=== PATIENT | female | born 1940 | race Caucasian/White ===

== ENCOUNTER 2021-04-10 14:58 | Outpatient (CLI) | payer MEDICARE, SELFPAY ==
--- NOTE | 2021-04-10 | XRR_ITS ---
[facility] Final Radiology Report Call: [phone] assistance Online chat: [email or web address] Name: KAREN ROUSE Age: 81Years F Date: 04/10/2021 SSN: [id number] : 1940 Study: XR CHEST 2 VIEWS Requesting Physician: YASMANI PALACIOS Images: 2 Add?l Studies: Provided Clinical History: DYSPHONIA PROCEDURE INFORMATION: Exam: XR Chest Exam date and time: 04/10/2021 3:11 PM Age: 81 years old Clinical indication: Other: Dysphonia TECHNIQUE: Imaging protocol: XR of the chest. Views: 2 views. COMPARISON: CR Chest 2 views* [id number] 02/06/2017 9:17 AM FINDINGS: Lungs: Linear atelectasis or scarring in the left base. The right lung is clear. Hyperexpanded lungs could indicate COPD. Pleural spaces: Unremarkable. No pleural effusion. No pneumothorax. Heart/Mediastinum: Unremarkable. No cardiomegaly. Bones/joints: C-spine hardware. Bilateral rotator cuff arthropathy. Scoliosis. No compression fracture visualized. Soft tissues: Right breast implant with capsular calcifications. IMPRESSION: No acute findings. Thank you for allowing us to participate in the care of your patient. Dictated and Authenticated by: Brendan Hernández MD 04/10/2021 9:01 PM Central Time ([place] & [place]) BONI
== END 2021-04-10 14:59 | disposition home or self-care (01) ==
PROVIDERS: PCP Family Medicine; Visit Provider Specialist
DX: J37.0 Chronic laryngitis (principal); K21.9 Gastro-esophageal reflux disease without esophagitis; R05 Cough; R49.0 Dysphonia
CPT/HCPCS: 71046

== ENCOUNTER 2022-01-26 11:07 | Outpatient (CLI) | payer MEDICARE, SELFPAY ==
[2022-01-26 13:19] LABS: 25 Hydroxy Vitamin D 65 ng/mL (30-100); Anion Gap 17.7 (5-19); Blood Urea Nitrogen 43 mg/dL (8-23); Calcium 9.5 mg/dL (8.5-10.5); Carbon Dioxide 24 mmol/L (22-29); Chloride 88 mmol/L (98-107); Glucose 94 mg/dL (65-115); Phosphorus 3.8 mg/dL (2.5-4.5); Potassium 4.7 mmol/L (3.5-5.1); Sodium 125 mmol/L (136-145)
[2022-01-26 13:20] LABS: Creatinine Urine, Random 51 mg/dL (28-217); Microalbum Creatinine Ratio Ur 20 mg/dL (0-20); Microalbumin Random Urine 1 ug/dL (0-20)
[2022-01-26 13:26] LABS: Calcium 9.6 mg/dL (8.5-10.5); Parathyroid Hormone 101.1 pg/mL (15-65)
== END 2022-01-26 11:08 | disposition home or self-care (01) ==
PROVIDERS: PCP Family Medicine; Visit Provider Internal Medicine Nephrology
DX: N18.4 Chronic kidney disease, stage 4 (severe) (principal)
CPT/HCPCS: 36415; 80069; 82044; 82306; 82310; 83970

== ENCOUNTER 2022-01-26 21:18 | Inpatient (IN) | payer MEDICARE, SELFPAY ==
[2022-01-26 21:33] VITALS: BP 157/77; PULSE 97; RESP 18; TEMP 36.2; O2SAT 95; BMI 29.2
--- NOTE | 2022-01-26 22:05 | XRR_ITS ---
PROCEDURE INFORMATION: Exam: XR Chest Exam date and time: 01/26/2022 10:19 PM Age: 82 years old Clinical indication: Other: Genral weakness; Prior surgery; Surgery type: Breast augmentation; Patient HX: Generalized weakness. TECHNIQUE: Imaging protocol: XR of the chest. Views: 1 view. COMPARISON: CR XR chest 2V* [id number] 04/10/2021 3:35 PM FINDINGS: Lungs: Unremarkable. No consolidation. Pleural spaces: Unremarkable. No pleural effusion. No pneumothorax. Heart/Mediastinum: Unremarkable. No cardiomegaly. Bones/joints: Unremarkable. XR/XR chest 1V portable [id number] IMPRESSION: No acute findings.
--- NOTE | 2022-01-26 22:06 | ECG_ITS ---
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 Measurements Intervals [place] Rate: 83 P: 50 TX: 180 QRS: 60 QRSD: 85 T: 29 QT: 345 QTc: 407 Interpretive Statements SINUS RHYTHM No previous ECG available for comparison Electronically Signed On 01-27-2022 8:15:18 CDT by Maximilian Williamson M.D. [id number]
[2022-01-26 22:53] LABS: Basophils % 0.3 %; Eosinophils # 0.5 10^3/uL (0.0-0.8); Eosinophils % 4.1 %; Hematocrit 32.4 % (37.0-47.0); Hemoglobin 10.9 g/dL (11.5-15.3); Lymphocytes # 3.6 10^3/uL (0.8-4.8); Mean Corpuscular HGB Conc 33.6 g/dL (30.0-36.0); Mean Corpuscular Hemoglobin 30.4 pg (28.0-34.0); Mean Corpuscular Volume 90.5 fl (81-99); Mean Platelet Volume 9.3 fL (7.4-10.4); Monocytes # 0.7 10^3/uL (0.2-0.9); Monocytes % 6.3 %; Neutrophils # 6.64 10^3/uL (1.8-7.7); Nucleated Red Blood Cells % 0 %; Platelet Count 383 10^3/cmm (130-400); Red Blood Count 3.58 10^6/uL (4.1-5.3); Red Cell Distribution Width 11.9 % (12.1-15.1); White Blood Count 11.5 10^3/uL (4.0-10.0)
[2022-01-26 23:22] LABS: Alanine Aminotransferase 9 U/L (0-33); Albumin Level 4.3 g/dL (3.5-5.2); Alkaline Phosphatase 97 IU/L (35-105); Anion Gap 16.7 (5-19); Aspartate Amino Transferase 12 U/L (0-32); Blood Urea Nitrogen 40 mg/dL (8-23); Calcium 8.8 mg/dL (8.5-10.5); Carbon Dioxide 24 mmol/L (22-29); Chloride 90 mmol/L (98-107); Globulin 3.1 g/dL (1.3-4.6); Glucose 119 mg/dL (65-115); Magnesium 1.8 mg/dL (1.7-2.3); NT Pro B Type Natriuretic Pept 418 pg/mL (0-450); Osmolality Calculated 273 mOsm/kg (285-295); Phosphorus 3.7 mg/dL (2.5-4.5); Potassium 4.7 mmol/L (3.5-5.1); Sodium 126 mmol/L (136-145); Total Bilirubin 0.2 mg/dL (0.15-1.2); Total Protein 7.4 g/dL (6.6-8.7)
[2022-01-26 23:30] VITALS: BP 166/77; PULSE 81; RESP 18; O2SAT 97
--- NOTE | 2022-01-26 23:55 | PC.NURSE ---
2330 pt to bathroom via wheelchair unsteady gait, pt reports she has been weak for a couple of months
[2022-01-27] VITALS (14 sets, daily range): BP systolic 121–169; BP diastolic 66–100; PULSE 79–96; RESP 14–20; TEMP 36.7–37.1; O2SAT 93–97; BMI 29.5
[2022-01-27 00:18] LABS: Add Urine Microscopic? YES; Bilirubin Urine Neg (Negative); Blood Urine Neg (Negative); Glucose Urine UA Norm (Normal); Ketones Urine Negative (Negative); Leukocyte Esterase Urine Trace (Negative); Nitrate Urine Negative (Negative); Protein Urine Neg (Negative); Specific Gravity, Urine 1.005 (1.005-1.030); Urine Appearance Clear (CLEAR); Urine Color Yellow (Yellow); Urobilinogen Urine Norm (Negative); pH Urine 7 (5-7)
[2022-01-27 00:19] LABS: Add Urine Culture? No; Bacteria Urine TRACE /hpf; RBC Urine 0-4 /hpf (0-2); Squamous Epithelial Cell Urine 0-4 /hpf (0-5); WBC Urine 0-4 /hpf (0-5)
--- NOTE | 2022-01-27 00:20 | W.ED.GENADLT ---
HPI - General Adult General: Chief complaint: General Medical Stated complaint: sent by PCP Time Seen by Provider: 01/26/22 21:36 History of Present Illness: 82-year-old lady with a history of hypertension, and evidently some kidney disease. She presents after having labs done around noon, and being called by a nephrology nurse practitioner urging her to go to the emergency room for a low sodium level. She notes that her sodium was 125 earlier today. She notes generalized weakness, and shakiness, that she usually does not have. Her mental status is at baseline according to her daughter. She has not had a fever, or significant cough, or any other concerning symptoms. Onset (ago): day(s) Radiation: non-radiation Quality: other Pain Consistency: other Relieving factors: other Associated symptoms: Reports nausea; Deny chest pain, confusion, fevers/chills, headache(s), seizures or vomiting Review of Systems Card: Denies: chest pain GI: Reports: nausea; Denies: vomiting Neuro: Denies: headache(s) or confusion PFS ED PFSH: Medical History Anxiety and depression Chronic kidney disease (CKD) stage G3a/A2, moderately decreased glomerular filtration rate (GFR) between 45-59 mL/min/1.73 square meter and albuminuria creatinine ratio between 30-299 mg/g History of peripheral neuropathy Hypertension Restless leg syndrome Surgical History (Updated 01/27/22 @ 00:26 by Cleve Upton MD) History of bilateral hip replacements Family History (Updated 01/27/22 @ 00:26 by Cleve Upton MD) Father CAD (coronary artery disease) Mother Stroke Social History Smoking and tobacco status: never smoked Alcohol intake: never Substance/Drug Use: never Physical Exam Const: COMMON NORMALS: alert GENERAL APPEARANCE: cooperative and frail appearing ORIENTATION/CONSCIOUSNESS: Yes oriented to person, Yes oriented to place and Yes oriented to time HENMT: COMMON NORMALS: normocephalic, atraumatic and Normal external nose present HEAD & SCALP: normocephalic and atraumatic FACE & SINUS: normal facial exam NOSE: Normal external nose present Eye: COMMON NORMALS: Equal, round and reactive pupils present and EOMs intact bilaterally PUPIL: Yes Equal, round and reactive pupils present Chest: COMMONS NORMALS: normal inspection of the chest Resp: COMMON NORMALS: normal respiratory effort, No use of accessory muscles and clear to auscultation bilaterally AUSCULTATION: clear to auscultation bilaterally Cardio: COMMON NORMALS: regular rate and regular rhythm RATE: regular rate RHYTHM: regular rhythm GI: COMMON NORMALS: Normal to inspection, nondistended, normoactive bowel sounds present, Soft to palpation and non-tender PALPATION: Yes Soft to palpation Extremity: GENERAL: Yes edema (1+) Neuro: SENSORIUM/ORIENTATION: Yes alert, Yes oriented to person, Yes oriented to place and Yes oriented to time CRANIAL NERVES: Yes CN normal except as noted SENSORY EXAM: Yes extremities MOTOR EXAM: Tremors during motor activity present (mild resting) Course Consultations: Consultation #1: eva Vital Signs: Vital signs: Vital Signs Temperature 97.2 F L 01/26/22 21:33 Pulse Rate 97 01/26/22 21:33 Respiratory Rate 18 01/26/22 21:33 Blood Pressure 157/77 01/26/22 21:33 Pulse Oximetry 95 01/26/22 21:33 [facility] - General Adult Medical Decision Making 82-year-old female with a sodium of 126. She is quite weak, and a bit tremulous. Creatinine is 1.7. Baseline is unknown. She will be admitted and treated for hyponatremia. Lab Data : 01/26/22 22:45 01/26/22 22:45 Radiology Impressions Chest X-Ray 01/26/22 22:05 IMPRESSION: No acute findings. Laboratory Results WBC 11.5 10^3/uL (4.0-10.0) H 01/26/22 22:45 RBC 3.58 10^6/uL (4.1-5.3) L 01/26/22 22:45 Hgb 10.9 g/dL (11.5-15.3) L 01/26/22 22:45 Hct 32.4 % (37.0-47.0) L 01/26/22 22:45 MCV 90.5 fl (81-99) 01/26/22 22:45 MCH 30.4 pg (28.0-34.0) 01/26/22 22:45 MCHC 33.6 g/dL (30.0-36.0) 01/26/22 22:45 RDW 11.9 % (12.1-15.1) L 01/26/22 22:45 Plt Count 383 10^3/cmm (130-400) 01/26/22 22:45 MPV 9.3 fL (7.4-10.4) 01/26/22 22:45 Neut % (Auto) 58.0 % 01/26/22 22:45 Lymph % (Auto) 31.0 % 01/26/22 22:45 [place] % (Auto) 6.3 % 01/26/22 22:45 Eos % (Auto) 4.1 % 01/26/22 22:45 Baso % (Auto) 0.3 % 01/26/22:45 Neut # (Auto) 6.64 10^3/uL (1.8-7.7) 01/26/22 22:45 Lymph # (Auto) 3.6 10^3/uL (0.8-4.8) 01/26/22 22:45 [place] # (Auto) 0.7 10^3/uL (0.2-0.9) 01/26/22 22:45 Eos # (Auto) 0.5 10^3/uL (0.0-0.8) 01/26/22:45 Baso # (Auto) 0.0 10^3/uL (0.0-0.1) 01/26/22 22:45 Nucleated RBC % (auto) 0 % 01/26/22:45 Nucleated RBCs # 0.0 /100WBC 01/26/22 22:45 Sodium 126 mmol/L (136-145) L 01/26/22 22:45 Potassium 4.7 mmol/L (3.5-5.1) 01/26/22 22:45 Chloride 90 mmol/L (98-107) L 01/26/22 22:45 Carbon Dioxide 24 mmol/L (22-29) 01/26/22 22:45 Anion Gap 16.7 (5-19) 01/26/22 22:45 BUN 40 mg/dL (8-23) H 01/26/22 22:45 Creatinine 1.7 mg/dL (0.5-0.9) H 01/26/22 22:45 GFR Calculation Not Reportable 01/26/22 22:45 Glucose 119 mg/dL (65-115) H 01/26/22 22:45 Calculated Osmolality 273 mOsm/kg (285-295) L 01/26/22 22:45 Calcium 8.8 mg/dL (8.5-10.5) 01/26/22 22:45 Phosphorus 3.7 mg/dL (2.5-4.5) 01/26/22 22:45 Magnesium 1.8 mg/dL (1.7-2.3) 01/26/22 22:45 Total Bilirubin 0.2 mg/dL (0.15-1.2) 01/26/22 22:45 AST 12 U/L (0-32) 01/26/22 22:45 ALT 9 U/L (0-33) 01/26/22 22:45 Alkaline Phosphatase 97 IU/L (35-105) 01/26/22 22:45 NT-Pro-B Natriuret Pep 418 pg/mL (0-450) 01/26/22 22:45 Total Protein 7.4 g/dL (6.6-8.7) 01/26/22 22:45 Albumin 4.3 g/dL (3.5-5.2) 01/26/22 22:45 Globulin 3.1 g/dL (1.3-4.6) 01/26/22 22:45 Urine Color Yellow (Yellow) 01/26/22 23:30 Urine Appearance Clear (CLEAR) 01/26/22 23:30 Urine pH 7 (5-7) 01/26/22 23:30 Ur Specific [place] 1.005 (1.005-1.030) 01/26/22 23:30 Urine Protein Neg (Negative) 01/26/22 23:30 Urine Glucose (UA) Norm (Normal) 01/26/22 23:30 Urine Ketones Negative (Negative) 01/26/22 23: Urine Blood Neg (Negative) 01/26/22 23: Urine Nitrate Negative (Negative) 01/26/22 23:30 Urine Bilirubin Neg (Negative) 01/26/22 23: Urine Urobilinogen Norm mg/dL (Negative) 01/26/22 23:30 Ur Leukocyte Esterase Trace (Negative) H 01/26/22 23:30 Urine RBC 0-4 /hpf (0-2) H 01/26/22 23:30 Urine WBC 0-4 /hpf (0-5) H 01/26/22 23:30 Ur Squamous Epith Cells 0-4 /hpf (0-5) H 01/26/22 23:30 Amorphous Sediment Not Reportable 01/26/22 23:30 Urine Bacteria Trace /hpf (NONE) 01/26/22 23:30 Discharge Plan Discharge Patient Disposition: Admitted As Inpatient Admit Provider: Cleve Upton Clinical Impression: Acute hyponatremia, Weakness Condition: Stable Coding Level of Care Code ED Manager Management for Chg Fwd Exam Comprehensive
--- NOTE | 2022-01-27 00:23 | P.HP_ITS ---
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 Patient tells her that recently she has been feeling more weak, unsteady, jitt maxwell. She normally ambulates with a walker, has been feeling more weak, unsteady, no falls or injuries. No headache, no blurry vision. No seizures. But recently she has been feeling more jittery, she saw Dr. Lyons who thought that she might have had restless leg and her gabapentin dose was go to be increased. 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 No dysuria. No increased urination. No dehydration. No diarrhea. She is on chlorthalidone. No recent blood pressure medication changes Review of Systems Const: Denies: fever(s) or chills Eyes: Denies: change in vision or blurry vision Card: Denies: chest pain, palpitations, swelling of feet/ankles or dyspnea on exertion Resp: Denies: dyspnea, productive cough, non-productive cough or wheezing GI: Denies: abdominal pain, nausea or vomiting : Denies: dysuria or urinary frequency Skin/Breast: Denies: rash Neuro: Denies: headache(s) or dizziness Endo: Denies: polyuria or polydipsia PFSH Acute PFSH: Medical History (Updated 01/27/22 @ 00:27 by Cleve Upton MD) Anxiety and depression Chronic kidney disease (CKD) stage G3a/A2, moderately decreased glomerular filtration rate (GFR) between 45-59 mL/min/1.73 square meter and albuminuria creatinine ratio between 30-299 mg/g History of peripheral neuropathy Hypertension Restless leg syndrome Surgical History (Updated 01/27/22 @ 00:26 by Cleve Upton MD) History of bilateral hip replacements Family History (Updated 01/27/22 @ 00:26 by Cleve Upton MD) Father CAD (coronary artery disease) Mother Stroke Social History (Updated 01/27/22 @ 00:27 by Cleve Upton MD) Smoking and tobacco status: never smoked Alcohol intake: never Substance/Drug Use: never Vitals/I&O/Wt Last Vital Signs Temp 97.2 F L 01/26/22 21:33 Pulse 97 01/26/22 21:33 Resp 18 01/26/22 21:33 BP 157/77 01/26/22 21:33 Pulse Ox 95 01/26/22 21:33 Weight last 48 hrs Weight 70.307 kg Physical Exam Const: COMMON NORMALS: no acute distress and patient oriented x3 HENMT: COMMON NORMALS: normocephalic HEAD & SCALP: normocephalic Eye: COMMON NORMALS: Equal, round and reactive pupils present and EOMs intact bilaterally Resp: COMMON NORMALS: normal respiratory effort, No retractions, No use of accessory muscles and clear to auscultation bilaterally AUSCULTATION: clear to auscultation bilaterally Cardio: COMMON NORMALS: no JVD, regular rate, regular rhythm, S1 normal heart sound present and S2 normal heart sound present RATE: regular rate RHYTHM: regular rhythm HEART SOUNDS: S1 normal heart sound present and S2 normal heart sound present GI: COMMON NORMALS: Normal to inspection, nondistended, normoactive bowel sounds present, Soft to palpation, non-tender, No hepatosplenomegaly present, no masses and no bruits PALPATION: Yes Soft to palpation and Yes No hepatosplenomegaly present Extremity: COMMON NORMALS: capillary refill normal, no clubbing, cyanosis or edema, no calf tenderness and no pedal edema Neuro: COMMON NORMALS: patient oriented x3, CN's II-XII intact bilaterally, moves all extremities and no focal motor deficits Psych: COMMON NORMALS: mental status grossly normal Data : 01/26/22 22:45 01/26/22 22:45 A&P Assessment and plan (1) Hyponatremia: Status: Acute (2) Chronic kidney disease (CKD) stage G3a/A2, moderately decreased glomerular filtration rate (GFR) between 45-59 mL/min/1.73 square meter and albuminuria creatinine ratio between 30-299 mg/g: Status: Acute Plan Acute hyponatremia -Likely secondary dehydration -BUN is elevated at 40 -Start IV hydration -Monitor serum sodiums -Neurochecks -DNR/DNI -Lovenox for DVT prophylaxis Chronic kidney disease, her last creatinine drawn in June shows that her creatinine was 1.9 History of peripheral neuropathy Hypertension, stop chlorthalidone Attestations Medical Necessity Statement*: Patient requires hospitalization for hyponatremia, inpatient, greater than 2 midnights Coding Level of Care Code Acute Radio Time Sales Supervisor for Chg Fwd Diagnoses Hyponatremia E87.1 Chronic kidney disease (CKD) stage G3a/A2, moderately decreased glomerular filtration rate (GFR) between 45-59 mL/min/1.73 square meter and albuminuria creatinine ratio between 30-299 mg/g N18.31
[2022-01-27] MEDS: ALPRAZolam 0.5 mg Tablet PO ×3 (02:14→23:00)
[2022-01-27] MEDS: enoxaparin 40 mg/0.4 mL Syringe SUBCUT (02:14)
[2022-01-27] MEDS: sodium chloride 0.9% 1,000 ML 100 ML IV ×3 (02:18→21:50)
--- NOTE | 2022-01-27 05:09 | NUR.SHIFT ---
Oriented when awake since admission. No complaints of pain made but did have report of anxiety so PRN medication given and effective for patient. Resting in bed now. 20 g IV in left antecubital infusing NS at 100ml/hr per order. Telemetry sinus rhythm with PVC's. Was able to stand and pivot with minimal assistance, weakness noted.
[2022-01-27] MEDS: levothyroxine 150 mcg Tablet 75 MCG PO (05:31)
[2022-01-27] MEDS: gabapentin 300 mg Capsule 900 MG PO ×2 (08:11→13:19)
[2022-01-27] MEDS: pantoprazole DR 40 mg Tablet PO (08:11)
[2022-01-27] MEDS: sennosides-docusate Tablet 1 TAB PO (08:11)
[2022-01-27] MEDS: duloxetine 60 mg Capsule PO (08:11)
[2022-01-27] MEDS: gabapentin 300 mg Capsule 600 MG PO (08:11)
[2022-01-27] MEDS: oxybutynin chloride XL 5 MG TABLET PO (08:11)
[2022-01-27] MEDS: sodium bicarbonate 650 mg Tablet PO (08:11)
[2022-01-27] MEDS: polyethylene glycol 3350 Pkt 17 gm PO (08:12)
[2022-01-27] MEDS: risperiDONE 1 mg Tablet PO (08:12)
[2022-01-27 08:27] LABS: Sodium 127 mmol/L (136-145)
[2022-01-27 12:35] LABS: Sodium 127 mmol/L (136-145)
[2022-01-27] MEDS: sodium chloride 1 gm Tablet 2 GM PO ×2 (14:39→17:20)
[2022-01-27] MEDS: HYDROcodone-acetaminophen 10-325 mg Tablet 1 TAB PO (14:40)
[2022-01-27 15:54] LABS: Urine Random Sodium 72 mmol/L
[2022-01-27 16:14] LABS: Sodium 128 mmol/L (136-145)
[2022-01-27 19:56] LABS: Sodium 131 mmol/L (136-145)
[2022-01-27] MEDS: duloxetine 30 mg Capsule PO (21:38)
[2022-01-28] VITALS: BP 145/74; PULSE 86; RESP 18; TEMP 36.4; O2SAT 94
[2022-01-28] MEDS: enoxaparin 40 mg/0.4 mL Syringe SUBCUT (01:02)
--- NOTE | 2022-01-28 02:49 | PC.NURSE ---
While up to bedside commode patient accidentally pulled IV out of left wrist. New IV intiated in left forearm by Mary Lauren RN.
[2022-01-28 04:00] VITALS: BP 144/68; PULSE 93; RESP 17; TEMP 36.7; O2SAT 95
[2022-01-28 05:09] LABS: Basophils % 0.4 %; Eosinophils # 0.3 10^3/uL (0.0-0.8); Eosinophils % 3.3 %; Hematocrit 28.2 % (37.0-47.0); Hemoglobin 9.3 g/dL (11.5-15.3); Lymphocytes # 3.3 10^3/uL (0.8-4.8); Lymphocytes % 34.7 %; Mean Corpuscular Hemoglobin 30.1 pg (28.0-34.0); Mean Corpuscular Volume 91.3 fl (81-99); Neutrophils # 4.71 10^3/uL (1.8-7.7); Nucleated Red Blood Cells % 0 %; Platelet Count 349 10^3/cmm (130-400); Red Blood Count 3.09 10^6/uL (4.1-5.3); Red Cell Distribution Width 12.2 % (12.1-15.1); White Blood Count 9.4 10^3/uL (4.0-10.0)
[2022-01-28] MEDS: gabapentin 300 mg Capsule 900 MG PO (05:11)
[2022-01-28] MEDS: levothyroxine 150 mcg Tablet 75 MCG PO (05:11)
[2022-01-28 05:32] LABS: Alanine Aminotransferase 7 U/L (0-33); Albumin Level 3.6 g/dL (3.5-5.2); Alkaline Phosphatase 74 IU/L (35-105); Aspartate Amino Transferase 12 U/L (0-32); Blood Urea Nitrogen 28 mg/dL (8-23); Calcium 8.2 mg/dL (8.5-10.5); Carbon Dioxide 20 mmol/L (22-29); Chloride 102 mmol/L (98-107); Globulin 2.3 g/dL (1.3-4.6); Glucose 104 mg/dL (65-115); Magnesium 1.5 mg/dL (1.7-2.3); Osmolality Calculated 284 mOsm/kg (285-295); Sodium 134 mmol/L (136-145); Thyroid Stimulating Hormone 2.28 uIU/mL (0.27-4.20); Total Bilirubin 0.2 mg/dL (0.15-1.2); Total Protein 5.9 g/dL (6.6-8.7)
[2022-01-28 05:33] LABS: Anion Gap 16.5 (5-19); Potassium 4.5 mmol/L (3.5-5.1)
[2022-01-28 05:48] VITALS: PULSE 89
[2022-01-28 07:38] VITALS: BP 145/76; PULSE 94; RESP 18; TEMP 36.7; O2SAT 93
[2022-01-28] MEDS: sodium chloride 0.9% 1,000 ML 100 ML IV (08:05)
[2022-01-28] MEDS: duloxetine 60 mg Capsule PO (08:06)
[2022-01-28] MEDS: sodium chloride 1 gm Tablet 2 GM PO (08:06)
[2022-01-28] MEDS: pantoprazole DR 40 mg Tablet PO (08:06)
[2022-01-28] MEDS: sodium bicarbonate 650 mg Tablet PO (08:07)
[2022-01-28] MEDS: risperiDONE 1 mg Tablet PO (08:10)
[2022-01-28] MEDS: oxybutynin chloride XL 5 MG TABLET PO (08:10)
[2022-01-28] MEDS: lanolin oint 7 gm 1 APPLIC TOPICAL (09:53)
[2022-01-28] MEDS: sodium chloride 0.9% 1,000 ML 50 ML IV (09:55)
--- NOTE | 2022-01-28 10:20 | PM.DCS ---
Discharge Providers Date of Admission: 01/27/22 00:08 Date of Discharge: January 28, 2022 Attending Provider at Admission: Cleve Upton MD Attending Provider at Discharge: Timothy Aiken MD Primary Care Provider: Wayne Echeverria MD Diagnoses at Discharge Discharge Diagnosis (1) Hyponatremia: (2) Chronic kidney disease (CKD) stage G3a/A2, moderately decreased glomerular filtration rate (GFR) between 45-59 mL/min/1.73 square meter and albuminuria creatinine ratio between 30-299 mg/g: Reason for Visit Reason for Visit: sent by PCP Hospital Course Hospital Course HPI : Shayla Trujillo is a 82 year old female with a past medical history of peripheral neuropathy, CKD stage III, hypertension, who presents to [facility] 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 Patient tells her that recently she has been feeling more weak, unsteady, jittery.? She normally ambulates with a walker, has been feeling more weak, unsteady, no falls or injuries.? No headache, no blurry vision.? No seizures.? But recently she has been feeling more jittery, she saw Dr. Lyons who thought that she might have had restless leg and her gabapentin dose was go to be increased.? When she was doing routine labs for loaders today and she was found to have a serum sodium of 126 so she was advised to come to the emergency room.? No dysuria.? No increased urination.? No dehydration.? No diarrhea.? She is on chlorthalidone.? No recent blood pressure medication changes. Hospital Course : She was admitted for the management for Ac Hypovolemic Hyponatremia,possible contribution from chlorthalidone, she was kept on I.V Hydration with normal saline, salt tablets were used,she was requested to eat and hydrate herself well,serum sodium was monitored q4hs,chlortahlidone was held during hospital stay,ans well as on discharge,serum sodium responded well to above conservative medical management, at the time of discharge she was not complaining of nausea,vomiting,dizziness,muscle pain, headache,confusion.Routine hyponatremia work up was done,her JULISA ON CKD Likely 2/2 to dehydration was also improving,scr on admission was 1.7 and on discharge was 1.2.She responded well to above medical mangement and she will follow up with her PCP as outpatient in 1 week with repeat BMP. Physical Exam Const: COMMON NORMALS: patient oriented x3 HENMT: COMMON NORMALS: normocephalic, atraumatic, hearing grossly normal bilaterally and external ears normal HEAD & SCALP: normocephalic and atraumatic EXTERNAL EAR: Yes external ears normal Eye: COMMON NORMALS: no scleral icterus GENERAL EYE: appearance normal, both eyes and all related structures Chest: COMMONS NORMALS: normal inspection of the chest and normal palpation of entire chest wall CHEST: Yes Symmetrical chest wall rise Resp: COMMON NORMALS: normal respiratory effort, No retractions, No use of accessory muscles and clear to auscultation bilaterally EFFORT & INSPECTION: Yes symmetric chest movement AUSCULTATION: clear to auscultation bilaterally Cardio: COMMON NORMALS: regular rate, regular rhythm, S1 normal heart sound present, S2 normal heart sound present, No gallops present (Cardio), No murmurs present (Cardio), No rub (Cardio) and Peripheral pulses 2+ throughout RATE: regular rate RHYTHM: regular rhythm HEART SOUNDS: S1 normal heart sound present and S2 normal heart sound present PERIPHERAL PULSES: Peripheral pulses 2+ throughout GI: COMMON NORMALS: Normal to inspection, nondistended, normoactive bowel sounds present, Soft to palpation, non-tender, No hepatosplenomegaly present and no masses AUSCULTATION: Yes normoactive bowel sounds PALPATION: Yes Soft to palpation and Yes No hepatosplenomegaly present RECTAL EXAM: deferred Extremity: COMMON NORMALS: no clubbing, cyanosis or edema and no pedal edema Neuro: COMMON NORMALS: patient oriented x3 Discharge Data Studies Completed and Pending Completed Studies During Hospitalization Category Date Time Status XR chest 1V portable [id number] Urgent Exams 01/26/22 22:05 Completed Pending at discharge Category Date Time Status BMP [Basic Metabolic Panel] AM LABS Lab 01/29/22 04:00 Ordered BMP [Basic Metabolic Panel] AM LABS Lab 01/30/22 04:00 Ordered Complete Blood Count w/Auto AM LABS Lab 01/29/22 04:00 Ordered Complete Blood Count w/Auto AM LABS Lab 01/30/22 04:00 Ordered Comprehensive Metabolic Panel AM LABS Lab 01/29/22 04:00 Ordered Comprehensive Metabolic Panel AM LABS Lab 01/30/22 04:00 Ordered Magnesium AM LABS Lab 01/29/22 04:00 Ordered Magnesium AM LABS Lab 01/30/22 04:00 Ordered Osmolality Serum Stat Lab 01/26/22 22:05 Received Osmolality Urine Stat Lab 01/26/22 23:30 Received Phosphorus AM LABS Lab 01/29/22 04:00 Ordered Phosphorus AM LABS Lab 01/30/22 04:00 Ordered Radiology Impressions Chest X-Ray 01/26/22 22:05 IMPRESSION: No acute findings. Laboratory Results WBC 9.4 10^3/uL (4.0-10.0) 01/28/22 04:25 RBC 3.09 10^6/uL (4.1-5.3) L 01/28/22 04:25 Hgb 9.3 g/dL (11.5-15.3) L 01/28/22 04:25 Hct 28.2 % (37.0-47.0) L 01/28/22 04:25 MCV 91.3 fl (81-99) 01/28/22 04:25 MCH 30.1 pg (28.0-34.0) 01/28/22 04:25 MCHC 33.0 g/dL (30.0-36.0) 01/28/22 04:25 RDW 12.2 % (12.1-15.1) 01/28/22 04:25 Plt Count 349 10^3/cmm (130-400) 01/28/22 04:25 MPV 10.0 fL (7.4-10.4) 01/28/22 04:25 Neut % (Auto) 50.0 % 01/28/22 04:25 Lymph % (Auto) 34.7 % 01/28/22 04:25 Zapata % (Auto) 11.0 % 01/28/22 04:25 Eos % (Auto) 3.3 % 01/28/22 04:25 Baso % (Auto) 0.4 % 01/28/22 04:25 Neut # (Auto) 4.71 10^3/uL (1.8-7.7) 01/28/22 04:25 Lymph # (Auto) 3.3 10^3/uL (0.8-4.8) 01/28/22 04:25 Zapata # (Auto) 1.0 10^3/uL (0.2-0.9) H 01/28/22 04:25 Eos # (Auto) 0.3 10^3/uL (0.0-0.8) 01/28/22 04:25 Baso # (Auto) 0.0 10^3/uL (0.0-0.1) 01/28/22 04:25 Nucleated RBC % (auto) 0 % 01/28/22 04:25 Nucleated RBCs # 0.0 /100WBC 01/28/22 04:25 Sodium 134 mmol/L (136-145) L 01/28/22 04:25 Potassium 4.5 mmol/L (3.5-5.1) 01/28/22 04:25 Chloride 102 mmol/L (98-107) 01/28/22 04:25 Carbon Dioxide 20 mmol/L (22-29) L 01/28/22 04:25 Anion Gap 16.5 (5-19) 01/28/22 04:25 BUN 28 mg/dL (8-23) H 01/28/22 04:25 Creatinine 1.2 mg/dL (0.5-0.9) H 01/28/22 04:25 GFR Calculation Not Reportable 01/28/22 04:25 Glucose 104 mg/dL (65-115) 01/28/22 04:25 Calculated Osmolality 284 mOsm/kg (285-295) L 01/28/22 04:25 Calcium 8.2 mg/dL (8.5-10.5) L 01/28/22 04:25 Phosphorus 3.0 mg/dL (2.5-4.5) 01/28/22 04:25 Magnesium 1.5 mg/dL (1.7-2.3) L 01/28/22 04:25 Total Bilirubin 0.2 mg/dL (0.15-1.2) 01/28/22 04:25 AST 12 U/L (0-32) 01/28/22 04:25 ALT 7 U/L (0-33) 01/28/22 04:25 Alkaline Phosphatase 74 IU/L (35-105) 01/28/22 04:25 NT-Pro-B Natriuret Pep 418 pg/mL (0-450) 01/26/22 22:45 Total Protein 5.9 g/dL (6.6-8.7) L 01/28/22 04:25 Albumin 3.6 g/dL (3.5-5.2) 01/28/22 04:25 Globulin 2.3 g/dL (1.3-4.6) 01/28/22 04:25 TSH 2.28 uIU/mL (0.27-4.20) 01/28/22 04:25 Urine Color Yellow (Yellow) 01/26/22 23:30 Urine Appearance Clear (CLEAR) 01/26/22 23:30 Urine pH 7 (5-7) 01/26/22 23:30 Ur Specific Merrill 1.005 (1.005-1.030) 01/26/22 23:30 Urine Protein Neg (Negative) 01/26/22 23:30 Urine Glucose (UA) Norm (Normal) 01/26/22 23:30 Urine Ketones Negative (Negative) 01/26/22 23:30 Urine Blood Neg (Negative) 01/26/22 23:30 Urine Nitrate Negative (Negative) 01/26/22 23:30 Urine Bilirubin Neg (Negative) 01/26/22 23:30 Urine Urobilinogen Norm mg/dL (Negative) 01/26/22 23:30 Ur Leukocyte Esterase Trace (Negative) H 01/26/22 23:30 Urine RBC 0-4 /hpf (0-2) H 01/26/22 23:30 Urine WBC 0-4 /hpf (0-5) H 01/26/22 23:30 Ur Squamous Epith Cells 0-4 /hpf (0-5) H 01/26/22 23:30 Amorphous Sediment Not Reportable 01/26/22 23:30 Urine Bacteria Trace /hpf (NONE) 01/26/22 23:30 Ur Random Sodium 72 mmol/L 01/27/22 14:45 Vitals Last Vital Signs Temp 98.1 F 01/28/22 07:38 Pulse 94 01/28/22 07:38 Resp 18 01/28/22 07:38 BP 145/76 01/28/22 07:38 Pulse Ox 93 01/28/22 07:38 Discharge Plan Discharge Patient Disposition: Home Condition: Stable Prescriptions: New sodium chloride 1 gram Tablet 1 g PO BID 7 Days Qty: 14 0RF Continued famotidine 10 mg Tablet 10 mg PO DAILY 0RF hydrocodone-acetaminophen 10-325 mg tablet 1 tab PO QID PRN (Reason: Pain) 0RF levothyroxine 75 mcg tablet 75 mcg PO DAILY 0RF alprazolam 0.5 mg tablet 0.5 mg PO TID PRN (Reason: Anxiety) 0RF sodium bicarbonate 650 mg Tablet 650 mg PO DAILY 0RF esomeprazole magnesium 40 mg capsule,delayed release(DR/EC) 40 mg PO BID 0RF gabapentin 300 mg capsule See Rx Instructions .ROUTE .COMPLEX 0RF Rx Instructions: Take 900 mg in the morning / 900 mg at noon / 600 mg in the evening Miralax 17 gram/dose Powder 17 g PO DAILY 0RF Tylenol PM Extra Strength 25-500 mg Tablet 2 tab PO BEDTIME PRN (Reason: Pain) 0RF Rx Instructions: administer while awake oxybutynin chloride 5 mg tablet 5 mg PO DAILY 0RF risperidone 1 mg tablet 1 mg PO BEDTIME 0RF ipratropium bromide 21 mcg (0.03 %) spray,non-aerosol 1 spray INTRANASAL DAILY PRN (Reason: Nasal Congestion) 0RF duloxetine 30 mg capsule,delayed release(DR/EC) 30 mg PO BEDTIME 0RF duloxetine 60 mg capsule,delayed release(DR/EC) 60 mg PO DAILY 0RF Prevagen 1 tab PO DAILY 0RF Held chlorthalidone 25 mg tablet 25 mg PO DAILY 0RF Hold Instructions: Resume on 02/04/22. Discharge Orders: Discharge Order (Routine); Ordered 01/28/22 Ordered By: Timothy Aiken Other Ambulatory Orders: Basic Metabolic Panel (Routine) Timeframe: 1 Week Facility: [facility] - Location: Lab - Main Lab Ordered By: Timothy Aiken Referrals: Wayne Echeverria MD [Primary Care Provider] - 1 week (Please call Dr. Echeverria's Office at [phone] to schedule a follow up appointment or if you have any questions or concerns. Thank you.) Discharge Diet: Regular Discharge Activity: Resume usual activity Patient Instructions: Sodium Chloride (By mouth), Hyponatremia (GEN), Opioid Safety Discharge Attestations Time Spent in Discharge Care*: less than 30 min Quality Metrics Clinical Quality Measures [ No reported AMI, CVA or VTE this stay] Coding Level of Care Code Acute Chg FW DC note Diagnoses Hyponatremia E87.1 Chronic kidney disease (CKD) stage G3a/A2, moderately decreased glomerular filtration rate (GFR) between 45-59 mL/min/1.73 square meter and albuminuria creatinine ratio between 30-299 mg/g N18.31
[2022-01-28 11:03] VITALS: BP 145/76; PULSE 94; RESP 18; TEMP 36.7; O2SAT 93
--- NOTE | 2022-01-28 11:50 | PC.NURSE ---
discharge orders given and explained.pt verb understanding of instructions.discharged via w/c to exit at this time
[2022-01-30 08:18] LABS: Osmolality Urine 278 mOsm/kg (50-1200)
[2022-01-30 08:18] LABS: Osmolality Serum 278 mOsm/kg (278-305)
== END 2022-01-28 11:50 | disposition home or self-care (01) | DRG 683 ==
LOC: ER 01-27 00:30 → MEDSURG 01-27 00:50
PROVIDERS: Admitting Provider Family Medicine; Emergency Provider Emergency Medicine; PCP Family Medicine; Visit Provider Internal Medicine
DX: N18.31 Chronic kidney disease, stage 3a (principal); E87.1 Hypo-osmolality and hyponatremia; I10 Essential (primary) hypertension; G62.9 Polyneuropathy, unspecified; G25.81 Restless legs syndrome
CPT/HCPCS: 36415; 71045; 80053; 80069; 81001; 81003; 82044; 82306; 82310; 83735; 83880; 83930; 83935; 83970; 84100; 84295; 84300; 84443; 85025; 93005; 96372; 99285; J1650; J7030

== ENCOUNTER → 2022-01-31 15:21 | Outpatient (BNVA) | payer MEDICARE, SELFPAY | PROVIDERS: PCP Family Medicine; Visit Provider Registered Nurse | DX: E87.1 Hypo-osmolality and hyponatremia (principal) | CPT/HCPCS: 80048 ==

== ENCOUNTER → 2022-05-25 09:47 | Outpatient (BNVA) | payer MEDICARE, SELFPAY | PROVIDERS: PCP Family Medicine; Visit Provider Family Medicine | DX: N18.9 Chronic kidney disease, unspecified (principal); N28.9 Disorder of kidney and ureter, unspecified | CPT/HCPCS: 80069; 82043; 82310; 83970 ==

== ENCOUNTER → 2022-05-25 09:50 | Outpatient (BNVA) | payer MEDICARE, SELFPAY | PROVIDERS: PCP Family Medicine; Visit Provider Family Medicine | DX: N18.9 Chronic kidney disease, unspecified (principal); N28.9 Disorder of kidney and ureter, unspecified | CPT/HCPCS: 85025 ==

== ENCOUNTER → 2022-09-07 09:12 | Outpatient (BNVA) | payer MEDICARE, SELFPAY | PROVIDERS: PCP Family Medicine; Visit Provider Family Medicine | DX: N18.4 Chronic kidney disease, stage 4 (severe) (principal) | CPT/HCPCS: 80069; 82043; 82306; 82310; 83970; 85025 ==

== ENCOUNTER → 2023-04-03 11:16 | Outpatient (BNVA) | payer MEDICARE, SELFPAY | PROVIDERS: PCP Family Medicine; Visit Provider Family Medicine | DX: D63.1 Anemia in chronic kidney disease (principal); N18.4 Chronic kidney disease, stage 4 (severe) | CPT/HCPCS: 80069; 82043; 82306; 82310; 83970; 85025 ==

== ENCOUNTER → 2023-10-10 13:40 | Outpatient (BNVA) | payer MEDICARE, SELFPAY | PROVIDERS: PCP Family Medicine; Visit Provider Family Medicine | DX: N18.9 Chronic kidney disease, unspecified (principal); Z79.899 Other long term (current) drug therapy | CPT/HCPCS: 80069; 81003; 82340; 85025 ==

== ENCOUNTER → 2023-10-22 13:40 | Outpatient (BNVA) | payer OTHER, SELFPAY | PROVIDERS: PCP Family Medicine; Visit Provider Family Medicine | DX: N39.0 Urinary tract infection, site not specified (principal) | CPT/HCPCS: 81003; 87086 ==

== ENCOUNTER 2023-12-18 13:23 | Outpatient (CLI) | payer MEDICARE, SELFPAY ==
--- NOTE | 2023-12-18 14:45 | US_ITS ---
WS: [id number] ULTRASOUND-GUIDED LEFT BREAST BIOPSY CLINICAL INFORMATION: breast mass FINDINGS: The procedure including risks, benefits, and complications were discussed with the patient who agreed to proceed. Using sterile technique patient was prepped and draped in the usual sterile fashion. Aft er 1% lidocaine utilizing real-time ultrasound guidance 5 14-gauge cores were obtained of the LEFT br east lesion at the 12 o'clock position 4 cm from the nipple. Subsequently a titanium clip was placed in the biopsy cavity. No immediate complications. Pathology demonstrates : 1. Infiltrating ductal adenocarcinoma, moderately differentiated. 2. Nuclear grade 2. 3. All 6 core biopsies involved. 4. Maximal length of invasive neoplasm based on glass slide measurement: 1.8 cm. 5. Foci suspicious for lymphovascular invasion. IMPRESSION: 1. Uncomplicated ultrasound-guided LEFT breast biopsy. 2. The pathology demonstrates infiltrating ductal adenocarcinoma moderately differentiated, nuclear grade 2. 3. Suspicion for surrounding lymphovascular invasion based on pathology and mammographic findings. 4. Breast cancer prognostic profile has been ordered and will be reported separately. See pathology report for final results. US/[id number] BI-RADS: 6-Known Biopsy-Proven Malignancy FOLLOW UP: Surgical Biopsy Recommended Recommend Breast surgery consultation.
[2023-12-24 08:41] LABS: Breast Profile ER,PR,HER2,Ki-6 See Report
== END 2023-12-18 13:24 | disposition home or self-care (01) ==
LOC: RAD 13:23
PROVIDERS: PCP Family Medicine; Visit Provider Family Medicine
DX: C50.812 Malignant neoplasm of overlapping sites of left female breast (principal)
CPT/HCPCS: 19083; 88305; 88361; 88374